=== PATIENT | female | born 1985 | race Caucasian/White ===

== ENCOUNTER 2017-06-02 11:41 | Emergency (ER) | payer MEDICAID ==
--- NOTE | 2017-06-02 12:34 | ED Physician Documentation ---
PD HPI URI - Stated complaint Stated Complaint: COUGH, SORE THROAT, SOA - Chief complaint Chief Complaint: Resp - History obtained from History obtained from: Patient - History of Present Illness Timing - onset: Other (32-year-old woman with history of bronchitis and pneumonia presents with 2 days of cough, runny nose, dyspnea on exertion. She does not have a fever. Child was sick with a similar illness recently. No possibility of . She also has a sore throat.) Review of Systems Constitutional: denies: Fever, Chills Nose: reports: Rhinorrhea / runny nose, Congestion. denies: Sinus pressure / pain Throat: reports: Sore throat Cardiac: denies: Chest pain / pressure, Palpitations Respiratory: reports: Dyspnea, Cough. denies: Hemoptysis, Wheezing PD PAST MEDICAL HISTORY - Past Medical History Psych: Depression Musculoskeletal: Fibromyalgia, Other Other Past Medical History: ankoloisispondilosis, factor 5 - Past Surgical History Past Surgical History: No - Present Medications Home Medications: Ambulatory Orders Medication Instructions Recorded Confirmed Duloxetine HCl [Cymbalta] 90 mg PO DAILY 07/19/16 06/02/17 Ibuprofen [Motrin] 800 mg PO Q8H PRN #30 tablet 07/19/16 06/02/17 Pregabalin [Lyrica] 200 mg PO QPM 07/19/16 06/02/17 Albuterol Sulfate [Proventil Hfa 1 - 2 puffs IH Q4H PRN #1 06/02/17 Inhaler] hfa.aer.ad Guaifenesin/Pseudoephedrne HCl 1 each PO BID PRN #20 tab.er.12h 06/02/17 [Mucinex D ER 600-60 mg Tablet] Mometasone Furoate [Nasonex] 1 spray NS BID #1 spray.pump 06/02/17 guaiFENesin/CODEINE [Robitussin AC] 5 - 10 ml PO Q6H PRN #120 ml 06/02/17 - Allergies Allergies/Adverse Reactions: Allergies Allergy/AdvReac Type Severity Reaction Status Date / Time acetaminophen [From Vicodin] Allergy Rash Verified 06/02/17 11:59 hydrocodone bitartrate * Allergy Rash Verified 06/02/17 11:59 [From Vicodin] methocarbamol Allergy Hives Verified 06/02/17 12:00 tramadol Allergy Hives Verified 06/02/17 12:00 aspirin AdvReac Unknown Verified 06/02/17 11:59 - Social History Does the pt smoke?: No Smoking Status: Never smoker Does the pt drink ETOH?: No Does the pt have substance abuse?: No - Immunizations Immunizations are current?: Yes PD ED PE NORMAL - Vitals Vital signs reviewed: Yes - General General: Alert and oriented X 3, No acute distress - HEENT HEENT: Other (Thick clear rhinorrhea, large noninflamed tonsils, no cervical adenopathy, TMs normal.) - Neck Neck: Supple, no meningeal sign, No bony TTP - Cardiac Cardiac: RRR, No murmur - Respiratory Respiratory: No respiratory distress, Clear bilaterally - Abdomen Abdomen: Non tender - Extremities Extremities: No edema, No calf tenderness / cord - Neuro Neuro: Alert and oriented X 3, Normal speech - Psych Psych: Normal mood, Normal affect Results - Vitals Vitals: Vital Signs - 24 hr 06/02/17 06/02/17 11:56 13:21 Temperature 36.5 C 36.6 C Heart Rate 90 86 Respiratory 16 18 Rate Blood Pressure 129/86 H 129/83 H O2 Saturation 97 98 Oxygen O2 Source Room air - Labs Labs: Laboratory Tests 06/02/17 13:00 Group A Strep Rapid Negative - Rads (name of study) 2v chest Radiology: EMP read contemporaneously (NAD) Departure - Departure Disposition: 01 Home, Self Care Clinical Impression: Upper respiratory tract infection Qualifiers: URI type: unspecified viral URI Qualified Code(s): J06.9 - Acute upper respiratory infection, unspecified; B97.89 - Other viral agents as the cause of diseases classified elsewhere Condition: Good Record reviewed to determine appropriate education?: Yes Instructions: ED Upper Resp Infec No Abx Tx Prescriptions: Guaifenesin/Pseudoephedrne HCl [Mucinex D ER 600-60 mg Tablet] 1 each PO BID PRN #20 tab.er.12h PRN Reason: congestion Mometasone Furoate [Nasonex] 1 spray NS BID #1 spray.pump Albuterol Sulfate [Proventil Hfa Inhaler] 1 - 2 puffs IH Q4H PRN #1 hfa.aer.ad PRN Reason: Cough guaiFENesin/CODEINE [Robitussin AC] 5 - 10 ml PO Q6H PRN #120 ml PRN Reason: Cough Comments: Call your doctor to arrange a follow-up appointment, make the next available appointment. In the interim, return anytime if worse or if new symptoms develop. Your blood pressure was elevated today on check into the emergency department. This does not mean that you have hypertension, it is a common phenomenon to come to the emergency department and have elevated blood pressure. I recommend that she see your primary care physician within the week to have it rechecked when you are feeling better. Forms: Activity restrictions
[2017-06-02 13:16] LABS: RAPID STREP SCREEN REAGENT QC YELLOW (YELLOW)
[2017-06-02 13:22] VITALS: BP 129/83
--- NOTE | 2017-06-02 13:28 | XRAY Preliminary Report ---
Exam: XR Chest 2 View PA/LAT IMPRESSION: Normal 2-view chest radiography. [facility] SITE ID: [id number]
--- NOTE | 2017-06-02 13:31 | XRAY Report ---
EXAM: CHEST RADIOGRAPHY EXAM DATE: 06/02/2017 01:20 PM. CLINICAL HISTORY: Cough and runny nose x2 days. Dyspnea on exertion. COMPARISON: 10/09/2010. TECHNIQUE: 2 views. FINDINGS: Lungs/Pleura: Normal volumes. No focal opacities are evident. No pleural effusion or pneumothorax. Mediastinum: Normal cardiomediastinal contour. Other: The bones are normal. IMPRESSION: Normal 2-view chest radiography. [facility] Referring Provider Line: [phone] SITE ID: [id number]
== END 2017-06-02 13:45 | disposition home or self-care (01) ==
LOC: ED 11:41
DX: J06.9 Acute upper respiratory infection, unspecified (principal); B97.89 Other viral agents as the cause of diseases classified elsewhere; R03.0 Elevated blood-pressure reading, without diagnosis of hypertension; M79.7 Fibromyalgia; D68.51 Activated protein C resistance
CPT/HCPCS: 71020; 87070; 87430; 99283

== ENCOUNTER 2017-06-22 19:24 | Emergency (ER) | payer MEDICAID ==
--- NOTE | 2017-06-22 20:16 | ED Physician Documentation ---
History of Present Illness - Stated complaint Stated Complaint: CALF SWOLLEN - Chief complaint Chief Complaint: Ext Problem - History obtained from History obtained from: Patient - History of Present Illness Timing: Today Pain level max: 2 Pain level now: 2 Improved by: nothing Worsened by: nothing - Additonal information Additional information: Patient is a 32-year-old female who has a history of a DVT in her left calf in 2003. States has factor V Leiden deficiency. Is currently not on blood thinners. Noted swelling to the calf again today. Concerned about recurrent DVT and came in for evaluation. Review of Systems Constitutional: denies: Fever, Chills Throat: denies: Sore throat Cardiac: denies: Chest pain / pressure, Palpitations Respiratory: denies: Cough GI: denies: Nausea, Vomiting Skin: denies: Rash Musculoskeletal: denies: Neck pain, Back pain Neurologic: denies: Headache PD PAST MEDICAL HISTORY - Past Medical History Past Medical History: Yes Psych: Depression Musculoskeletal: Fibromyalgia, Other Other Past Medical History: Hx of DVT in Apr 2004, Factor V Leiden deficiency - Past Surgical History Past Surgical History: No - Present Medications Home Medications: Ambulatory Orders Medication Instructions Recorded Confirmed Duloxetine HCl [Cymbalta] 90 mg PO DAILY 07/19/16 06/22/17 Ibuprofen [Motrin] 800 mg PO Q8H PRN #30 tablet 07/19/16 06/22/17 Pregabalin [Lyrica] 200 mg PO QPM 07/19/16 06/22/17 - Allergies Allergies/Adverse Reactions: Allergies Allergy/AdvReac Type Severity Reaction Status Date / Time acetaminophen [From Vicodin] Allergy Rash Verified 06/22/17 19:34 hydrocodone bitartrate * Allergy Rash Verified 06/22/17 19:34 [From Vicodin] methocarbamol Allergy Hives Verified 06/22/17 19:34 tramadol Allergy Hives Verified 06/22/17 19:34 aspirin AdvReac Unknown Verified 06/22/17 19:34 - Social History Does the pt smoke?: No Smoking Status: Never smoker Does the pt drink ETOH?: No Does the pt have substance abuse?: No - Immunizations Immunizations are current?: Yes PD ED PE NORMAL - Vitals Vital signs reviewed: Yes - General General: Alert and oriented X 3, No acute distress - Derm Derm: Warm and dry - Extremities Extremities: Other (LLE - swollen calf, mild diffuse TTP. No cord. no erythema) - Neuro Neuro: Alert and oriented X 3 - Psych Psych: Normal mood, Normal affect Results - Vitals Vitals: Vital Signs - 24 hr 06/22/17 06/22/17 19:31 21:39 Temperature 36.5 C Heart Rate 102 H 99 Respiratory 18 18 Rate Blood Pressure 146/93 H 136/89 H O2 Saturation 99 100 Oxygen O2 Source Room air - Rads (name of study) duplex US LLE Radiology: Prelim report reviewed, EMP read contemporaneously, See rad report ( normal, no DVT) PD MEDICAL DECISION MAKING - ED course Complexity details: reviewed results, re-evaluated patient, considered differential, d/w patient ED course: Patient is a 32-year-old female who presents to the emergency department with left lower extremity swelling, concern about recurrent DVT. No DVT on ultrasound. She is out of her compression stockings and will follow up with her doctor for a new prescription for her compression stockings. We will continue supportive care and follow-up with her doctor. No evidence of infection. Patient counseled regarding signs and symptoms for which I believe and urgent re-evaluation would be necessary. Patient with good understanding of and agreement to plan and is comfortable going home at this time This document was made in part using voice recognition software. While efforts are made to proofread this document, sound alike and grammatical errors may occur. Departure - Departure Disposition: 01 Home, Self Care Clinical Impression: Leg swelling Condition: Good Instructions: ED Leg Swelling Unilateral Follow-Up: your,doctor as needed [Other] Comments: Your ultrasound is normal tonight. Return if you worsen. Your blood pressure was elevated today on check in to the emergency department. This does not mean that you have hypertension, it is a common phenomenon to check into the emergency department and have elevated blood pressure. I recommend that you see your primary care physician within the week to have it rechecked when you're feeling better. Discharge Date/Time: 06/22/17 21:40
[2017-06-22 21:40] VITALS: BP 136/89
--- NOTE | 2017-06-22 21:40 | Ultrasound Preliminary Report ---
Exam: US DUPLEX EXT VEINS LEFT IMPRESSION: No evidence for deep venous thrombosis. [facility] SITE ID: [id number]
--- NOTE | 2017-06-22 21:42 | Ultrasound Report ---
EXAM: LEFT LOWER EXTREMITY VENOUS ULTRASOUND EXAM DATE: 06/22/2017 09:21 PM. CLINICAL HISTORY: Left lower extremity swelling.. COMPARISON: 07/17/2007. TECHNIQUE: Real-time sonographic vascular imaging was performed by the metal fitters and machinists through the lower extremity utilizing both color-flow and Doppler spectral analysis. Multiple technical service representative static maryann ges were saved for review. FINDINGS: Common Femoral Vein (CFV): Normal. CFV-GSV Junction: Normal. Profunda Femoral Vein (PFV): Normal. Femoral Vein (FV) Prox: Normal. Femoral Vein (FV) Mid: Normal. Femoral Vein (FV) Dist: Normal. Popliteal Vein: Normal. Posterior Tibial Veins: Normal. Peroneal Veins: Normal. IMPRESSION: No evidence for deep venous thrombosis. [facility] Referring Provider Line: [phone] SITE ID: [id number]
== END 2017-06-22 21:40 | disposition home or self-care (01) ==
LOC: ED 19:24
DX: R22.42 Localized swelling, mass and lump, left lower limb (principal); D68.51 Activated protein C resistance; Z86.718 Personal history of other venous thrombosis and embolism
CPT/HCPCS: 99283; 99284

== ENCOUNTER 2018-11-17 16:24 | Emergency (ER) | payer MEDICAID, OTHER ==
[2018-11-17 16:29] VITALS: BP 144/87
--- NOTE | 2018-11-17 17:30 | XRAY Report ---
Reason: shoulder popped out Procedure Date: 11/17/2018 Accession Number: [id number] / [id number] Procedure: XR - Shoulder 3 View LT CPT Code: FULL RESULT: EXAM: LEFT SHOULDER RADIOGRAPHY EXAM DATE: 11/17/2018 05:05 PM. CLINICAL HISTORY: Shoulder popped out. COMPARISON: None. TECHNIQUE: 3 views. FINDINGS: Bones: Normal. No fracture or bone lesion. Joints: The glenohumeral and acromioclavicular joints are normal. Soft tissues: The visualized hemithorax is unremarkable. No soft tissue swelling. IMPRESSION: Negative shoulder radiography. [facility]
--- NOTE | 2018-11-17 18:14 | ED Physician Documentation ---
PD HPI UPPER EXT INJURY - Stated complaint Stated Complaint: L SHOULDER PX - Chief complaint Chief Complaint: Ext Problem - History obtained from History obtained from: Patient - History of Present Illness Location: Left, Shoulder Type of injury: Other (Her shoulder had been feeling okay with normal lifting and use at work. 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 She states it hurts with range of motion since that time. She denies any prior similar episodes.) Where injury occurred: Work Timing - onset: Today Timing - duration: Hours Timing - details: Abrupt onset, Still present Improved by: Rest Worsened by: Moving (rotational movements), Palpating (anterior shoulder) Associated symptoms: No: Weakness, Numbness Similar symptoms before: Has not had sx before Recently seen: Not recently seen Review of Systems Musculoskeletal: reports: Joint pain Neurologic: denies: Focal weakness, Numbness PD PAST MEDICAL HISTORY - Past Medical History Cardiovascular: Deep vein thrombosis Psych: Depression Musculoskeletal: Osteoarthritis, Fibromyalgia, Chronic back pain, Other - Past Surgical History Past Surgical History: No - Present Medications Home Medications: Ambulatory Orders Medication Instructions Recorded Confirmed Naproxen 500 mg PO BID #20 tablet 11/17/18 - Allergies Allergies/Adverse Reactions: Allergies Allergy/AdvReac Type Severity Reaction Status Date / Time acetaminophen [From Vicodin] Allergy Rash Verified 11/17/18 16:29 hydrocodone bitartrate * Allergy Rash Verified 11/17/18 16:29 [From Vicodin] methocarbamol Allergy Hives Verified 11/17/18 16:29 tramadol Allergy Hives Verified 11/17/18 16:29 aspirin AdvReac Unknown Verified 11/17/18 16:29 - Social History Does the pt smoke?: Yes Smoking Status: Current every day smoker Does the pt drink ETOH?: No Does the pt have substance abuse?: No - Immunizations Immunizations are current?: Yes PD ED PE NORMAL - Vitals Vital signs reviewed: Yes - General General: Alert and oriented X 3, No acute distress, Well developed/nourished - Derm Derm: Normal color, Warm and dry - Extremities Extremities: Other (The left shoulder is tender anteriorly. There is no dislocation noted. The AC joint is without tenderness nor step-off. She does have active range of motion of the shoulder in all directions. She has pain with rotational movement particularly abduction extension and external rotation.) - Neuro Neuro: Alert and oriented X 3, No motor deficit, No sensory deficit Results - Vitals Vitals: Vital Signs - 24 hr 11/17/18 16:28 Temperature 36.4 C L Heart Rate 98 Respiratory 20 Rate Blood Pressure 144/87 H O2 Saturation 98 Oxygen O2 Source Room air - Rads (name of study) left shoulder Radiology: Prelim report reviewed (no acute findings), EMP read contemporaneous ly, See rad report PD MEDICAL DECISION MAKING - ED course Complexity details: reviewed results, considered differential, d/w patient Departure - Departure Disposition: 01 Home, Self Care Clinical Impression: Strain of left rotator cuff capsule Qualifiers: Encounter type: initial encounter Qualified Code(s): S46.012A - Strain of muscle(s) and tendon(s) of the rotator cuff of left shoulder, initial encounter Condition: Stable Record reviewed to determine appropriate education?: Yes Instructions: ED Sprain Shoulder Follow-Up: [facility] [Provider Group] Prescriptions: Naproxen 500 mg PO BID #20 tablet Comments: Limited shoulder use for the next 5 days or so. He can resume sooner if it is feeling okay without hurting on motion. It is likely have a strain of the rotator cuff muscle and this can take several days even to a week or 2 to improve. I do not think it is a tear of the rotator cuff and that would take much longer to improve. Use a sling for comfort over the next couple of days and progress use. Have some range of motion of the shoulder a few times a day. For work, no overhead reaching, push pull, lifting more than a couple of pounds for the next 5 days unless is feeling all the way better. Recheck with Ortho if not better in the next week to week and a half. Forms: Activity restrictions Discharge Date/Time: 11/17/18 19:01
[2018-11-17] MEDS ORDERED: IBUPROFEN 600 MG TABLET PO STA (18:49)
== END 2018-11-17 19:01 | disposition home or self-care (01) ==
LOC: ED 16:24
DX: S46.012A Strain of muscle(s) and tendon(s) of the rotator cuff of left shoulder, initial encounter (principal); X50.9XXA Other and unspecified overexertion or strenuous movements or postures, initial encounter; Y99.0 Civilian activity done for income or pay; F17.200 Nicotine dependence, unspecified, uncomplicated
CPT/HCPCS: 1040M; 73030; 99283; A9270

== ENCOUNTER 2021-11-29 08:40 | Emergency (ER) | payer MEDICAID ==
--- NOTE | 2021-11-29 08:56 | ED Physician Documentation ---
PD HPI SKIN - Stated complaint Stated Complaint: ITCHY, SWELLING, RT UPPER CHEST - Chief complaint Chief Complaint: Wound - History obtained from History obtained from: Patient - History of Present Illness Timing - onset: How many days ago (3) Timing - duration: Days (3) Timing - details: Gradual onset, Still present Location: Chest (right subclavicular area.) Quality / character: Painful, Discolored (red), Draining (mild drainage if squeezed around the wound) Associated symptoms: No: Fever, Myalgias, N/V/D Recently seen: Clinic (Had a biopsy of a chest wall skin lesion a week ago with 1 absorbable suture apparently placed. The patient noted redness swelling tenderness and some drainage over the last 3 days.) Review of Systems Constitutional: denies: Fever, Chills GI: denies: Nausea, Vomiting PD PAST MEDICAL HISTORY - Past Medical History Cardiovascular: Deep vein thrombosis Psych: Depression Musculoskeletal: Osteoarthritis, Fibromyalgia, Chronic back pain, Other Derm: Psoriasis - Past Surgical History Past Surgical History: No - Present Medications Home Medications: Ambulatory Orders Medication Instructions Recorded Confirmed Naproxen 500 mg PO BID #20 tablet 11/17/18 Doxycycline Hyclate 100 mg PO BID 7 Days #14 cap 11/29/21 Mupirocin 2% Oint [Bactroban 2% 1 applic TOP TID #15 gm 11/29/21 Oint] - Allergies Allergies/Adverse Reactions: Allergies Allergy/AdvReac Type Severity Reaction Status Date / Time acetaminophen [From Vicodin] Allergy Rash Verified 11/29/21 08:53 hydrocodone bitartrate * Allergy Rash Verified 11/29/21 08:53 [From Vicodin] methocarbamol Allergy Hives Verified 11/29/21 08:53 prednisone Allergy Unknown Verified 11/29/21 08:53 tramadol Allergy Hives Verified 11/29/21 08:53 aspirin AdvReac Unknown Verified 11/29/21 08:53 - Social History Does the pt smoke?: Yes Smoking Status: Current every day smoker Does the pt drink ETOH?: No Does the pt have substance abuse?: No - Immunizations Immunizations are current?: Yes PD ED PE NORMAL - Vitals Vital signs reviewed: Yes - General General: Alert and oriented X 3, No acute distress, Well developed/nourished - Derm Derm: Normal color, Warm and dry, Other (Right infra clavicular chest wall with a rounded surgical wound with apparent pursestring stitch of absorbable material with the tail sticking out. There is no purulence nor fluctuance at this time. There is redness and warmth about 2 to 3 cm in the area.) Results - Vitals Vitals: Vital Signs - 24 hr 11/29/21 08:49 Temperature 36.2 C L Heart Rate 106 H Respiratory 16 Rate Blood Pressure 150/97 H O2 Saturation 96 Oxygen O2 Source Room air PD MEDICAL DECISION MAKING - ED course Complexity details: considered differential (The subcutaneous suture was unraveling so I removed it with forceps and scalpel tip. No purulence. We will treat it as a wound infection with doxycycline and mupirocin.), d/w patient Departure - Departure Disposition: 01 Home, Self Care Clinical Impression: Wound infection following procedure Condition: Stable Record reviewed to determine appropriate education?: Yes Instructions: ED Staph Infec Abx Tx Only Follow-Up: Silke Ortiz MD [Primary Care Provider] - Prescriptions: Mupirocin 2% Oint [Bactroban 2% Oint] 1 applic TOP TID #15 gm Doxycycline Hyclate 100 mg PO BID 7 Days #14 cap Comments: Continue to clean the wound with soap and water and apply ointment. I would suggest mupirocin antibiotic ointment twice daily for the next 5 to 6 days and then you can resume the A&E ointment as the infection clears. Also doxycycline oral antibiotic twice daily for the next 5 days. I would anticipate improvement in the infection symptoms of the wound over the next few days. Return or recheck if not improving well or worsening. I transmitted your prescription to [facility].
[2021-11-29] MEDS ORDERED: MUPIROCIN 2% OINT 1 GM TOP STA (09:10)
[2021-11-29] MEDS ORDERED: DOXYCYCLINE 100 MG TABLET PO STA (09:10)
[2021-11-29 09:48] VITALS: BP 148/97
== END 2021-11-29 09:48 | disposition home or self-care (01) ==
LOC: ED 08:40
DX: T81.41XA Infection following a procedure, superficial incisional surgical site, initial encounter (principal); F17.200 Nicotine dependence, unspecified, uncomplicated
CPT/HCPCS: 99282; A9270

== ENCOUNTER 2022-01-24 10:11 | Outpatient (CLI) | payer MEDICAID ==
[2022-01-24 13:07] LABS: ESTIMATED AVERAGE GLUCOSE 154 mg/dL (70-100)
== END 2022-01-24 10:12 | disposition home or self-care (01) ==
LOC: LAB 10:11
PROVIDERS: ATTEND Family Medicine
DX: E11.9 Type 2 diabetes mellitus without complications (principal)
CPT/HCPCS: 36415; 83036